=== PATIENT | male | born 1970 | race Caucasian/White ===

== ENCOUNTER → 2018-10-10 | Outpatient (CLI) | payer OTHER ==
[2018-10-10 10:15] LABS: INR 0.85; PROTHROMBIN TIME 12.4 seconds (11.9-14.5)
[2018-10-10 10:26] LABS: BLOOD UREA NITROGEN 12 mg/dL (7-26); BUN/CREATININE RATIO 12 (6-25); EST GLOMERULAR FILTRATION RATE > 60 ML/MIN (60-)
[2018-10-10 10:31] LABS: PARTIAL THROMBOPLASTIN TIME 27.8 seconds (23.8-35.5)
--- NOTE | 2018-10-10 11:47 | Diagnostic Imaging Report ---
Examination: Single AP view of the chest. COMPARISON: None. INDICATION: PICC placement DISCUSSION: Tip of right upper extremity PICC projects over the low superior vena cava. Lungs are well-inflated and without consolidation, pleural effusion, or pneumothorax. Cardiomediastinal contour and pulmonary vasculature are within normal limits for portable, AP technique. No acute osseous abnormality. IMPRESSION: Right upper extremity PICC, appropriately positioned as above. Signed by: Dr. Darwin Guillory M.D. on 10/10/2018 11:43 AM
== END ==
LOC: DX 09:36
PROVIDERS: ATTEND Internal Medicine Infectious Disease
DX: M86.071 Acute hematogenous osteomyelitis, right ankle and foot (principal)
CPT/HCPCS: 36415; 36569; 71045; 82565; 84520; 85049; 85610; 85730